=== PATIENT | female | born 1985 | race Caucasian/White ===

== ENCOUNTER 2020-12-27 06:37 | Emergency (ER) | payer MEDICARE, MEDICAID ==
[~2020-12-27] VITALS: Ht 154.9 cm; Wt 99.8 kg
[2020-12-27] MEDS ORDERED: LORazepam 2MG/ML-1ML VIAL IV ONE (07:15)
[2020-12-27 07:25] LABS: Hematocrit 43.7 % (36.0-46.0); Hemoglobin 14.4 g/dL (12.2-16.2); Mean Corpuscular Volume 90.9 fL (80.0-100.0); Platelet Count (auto) 107 10^3/uL (140-450); Red Blood Cells 4.81 10^6/uL (4.0-5.20); Red Cell Distribution Width 14.4 % (11.8-14.3); White Blood Cell 27.1 10^3/uL (4.4-10.8)
[2020-12-27 07:40] LABS: INR 2.04 (0.9-1.15); Partial Thromboplastin Time 28.7 sec (23.0-31.2)
[2020-12-27 07:47] LABS: Basophils % (manual) 0 (0.0-2.0); Blast Cells 0; Eosinophils % (manual) 0 (0-7); Myelocytes % 0; Promyelocytes % 0; Reactive Lymphocytes 0
[2020-12-27] MEDS ORDERED: LORazepam 2MG/ML-1ML VIAL ONE (07:50)
[2020-12-27 07:54] LABS: Lactic Acid w/Reflex 8.7 mmol/L (0.4-2.0)
[2020-12-27 08:06] LABS: Alanine Aminotransferase 60 U/L (13-56); Albumin 3.1 g/dL (3.4-5.0); Amylase 87 U/L (25-115); Anion Gap 21 (5-15); Aspartate Aminotransferase 117 U/L (15-37); Blood Urea Nitrogen 35 mg/dL (7-18); Calcium 8.3 mg/dL (8.5-10.1); Carbon Dioxide 14 mmol/L (21-32); Chloride 103 mmol/L (98-107); GFR African American 30 mL/min; GFR Non-African American 25 mL/min; Glucose 227 mg/dL (74-106); Lipase 360 U/L (73-393); Magnesium 2.6 mg/dL (1.6-2.6); Potassium 3.1 mmol/L (3.5-5.1); Sodium 138 mmol/L (136-145)
[2020-12-27 08:09] LABS: Alkaline Phosphatase 180 U/L (45-117); Bilirubin, Total 1.9 mg/dL (0.2-1.0); Total Protein 7.9 g/dL (6.4-8.2)
[2020-12-27] MEDS ORDERED: SODIUM BICARBONATE 8.4% INJ 50ML SYRINGE ONE (08:43)
[2020-12-27] MEDS ORDERED: EPINEPHrine HCL 1 MG/10 ML SYRG ONE ×2 (08:43→08:46)
[2020-12-27] MEDS ORDERED: EPINEPHrine HCL 1 MG/1 ML AMP ONE (08:45)
[2020-12-27 09:00] LABS: Band Neutrophils % (manual) 6; Lymphocytes % (manual) 14 (10.0-50.0); Metamyelocytes % 4; Monocytes % (manual) 5 (0-12)
[2020-12-27] MEDS ORDERED: SODIUM BICARBONATE 8.4 % INJ 50ML VIAL IV ONE (09:00)
[2020-12-27 11:49] VITALS: BP 88/42
== END 2020-12-27 16:02 | disposition home or self-care (01) ==
LOC: ER 06:37
DX: I46.9 Cardiac arrest, cause unspecified (principal); Z20.822 Contact with and (suspected) exposure to COVID-19
CPT/HCPCS: 31500; 36415; 36600; 80053; 82010; 82150; 82805; 82962; 83605; 83690; 83735; 85007; 85027; 85610; 85730; 87040; 87426; 92950; 93005; 94660; 96374; 99291; C9803; J0171; J2060; U0003